=== PATIENT | female | born 1970 | race Caucasian/White ===

== ENCOUNTER 2017-09-30 09:17 | Emergency (ER) | payer OTHER ==
[2017-09-30] MEDS: predniSONE 20 MG TAB PO (11:13)
[2017-09-30] MEDS: ALBUTEROL 0.083% (NEB) 2.5 MG/3 ML AMP NEB (11:17)
[2017-09-30] MEDS: IPRATROPIUM (NEB) 0.5 MG/2.5 ML AMP NEB (11:17)
== END 2017-09-30 13:38 | disposition home or self-care (01) ==
LOC: FTE 09:17
DX: J45.901 Unspecified asthma with (acute) exacerbation (principal)
CPT/HCPCS: 71045; 94664; 99284-25